=== PATIENT | male | born 1935 | race Hispanic/Latino ===

== ENCOUNTER 2017-02-19 13:37 | Emergency (ER) | payer MEDICARE, OTHER ==
[2017-02-19 13:37] VITALS: BMI 26.6
[2017-02-19 13:51] VITALS: TEMP 97.3; O2SAT 99
--- NOTE | 2017-02-19 14:18 | ED PDOC ---
Arrival/HPI - General Chief Complaint: Medical Clearance Time Seen by Provider: 02/19/17 13:48 Historian: Patient - History of Present Illness Narrative History of Present Illness (Text): 02/19/17 14:13 81 year old male whose past medical history includes hypertension, hyperlipidemia, gastritis, and hernia, presents to the emergency department with weakness that began while en route to a follow up appointment with GI for constipation. Patient's GI doctor (dr holt) reports he instructed the patient to come to the emergency department for evaluation. Patient reports he has been seeing his PMD for constipation. Currently patient denies any pain, nausea, dizziness, or other complaints. PMD: Dr. Louie 02/19/17 20:00 Past Medical History - Provider Review Nursing Documentation Reviewed: Yes - Infectious Disease Hx of Infectious Diseases: None - Cardiac Hx Hypertension: Yes Hx Pacemaker: No - Neurological Hx Paralysis: No - Hematological/Oncological Hx Blood Transfusions: No Hx Blood Transfusion Reaction: No - Musculoskeletal/Rheumatological Hx Musculoskeletal Disorders: No - Gastrointestinal Hx Gastroesophageal Reflux: Yes - Psychiatric Hx Emotional Abuse: No Hx Physical Abuse: No Hx Substance Use: No - Anesthesia Hx Anesthesia: No Hx Anesthesia Reactions: No Hx Malignant Hyperthermia: No - Suicidal Assessment Feels Threatened In Home Enviroment: No Family/Social History - Physician Review Nursing Documentation Reviewed: Yes Family/Social History: Unknown Family HX Smoking Status: Former Smoker Hx Alcohol Use: Yes (SOCIAL) Hx Substance Use: No Allergies/Home Meds Allergies/Adverse Reactions: Allergies No Known Allergies Allergy (Verified 02/19/17 13:47) Home Medications: Home Meds Medication Instructions Recorded Confirmed Aspirin [Aspir 81] 81 mg PO QAM 07/02/13 02/19/17 Atorvastatin [Lipitor] 20 mg PO QAM 07/02/13 02/19/17 Polyethylene Glycol 3350 [Miralax] 17 gm PO BID 06/20/15 02/19/17 amLODIPine [Norvasc] 10 mg PO QAM 06/20/15 02/19/17 Ranitidine HCl [Ranitidine 150] 150 mg PO HS 06/21/15 02/19/17 Dutasteride [Avodart] 0.5 mg PO QAM 01/06/16 02/19/17 [place]-3 Fatty Acids/Fish Oil [Fish 1,000 mg PO QAM 01/06/16 02/19/17 Oil 1,000 mg Capsule] Review of Systems - Physician Review All systems were reviewed & negative as marked: Yes - Review of Systems Cardiovascular: absent: Chest Pain Gastrointestinal: Constipation (Patient states has been following up with PMD/ GI. No new complaints today.). absent: Abdominal Pain, Nausea Neurological: absent: Dizziness Physical Exam Vital Signs Reviewed: Yes Vital Signs Temp Pulse Resp BP Pulse Ox 02/19/17 16:37 18 99 02/19/17 15:06 79 18 137/79 99 02/19/17 13:49 97.3 F L 88 19 139/84 99 Temperature: Afebrile Blood Pressure: Normal Pulse: Regular Respiratory Rate: Normal Appearance: Positive for: Well-Appearing, Non-Toxic, Comfortable Pain Distress: None Mental Status: Positive for: Alert and Oriented X 3 - Systems Exam Head: Present: Atraumatic, Normocephalic Pupils: Present: PERRL Extroacular Muscles: Present: EOMI Conjunctiva: Present: Normal Mouth: Present: Moist Mucous Membranes Neck: Present: Normal Range of Motion Respiratory/Chest: Present: Clear to Auscultation, Good Air Exchange. No: Respiratory Distress, Accessory Muscle Use Cardiovascular: Present: Regular Rate and Rhythm, Normal S1, S2. No: Murmurs Abdomen: Present: Normal Bowel Sounds. No: Tenderness, Distention, Peritoneal Signs, Rebound, Guarding Back: Present: Normal Inspection Upper Extremity: Present: Normal Inspection. No: Cyanosis, Edema Lower Extremity: Present: Normal Inspection. No: Edema Neurological: Present: GCS=15, CN II-XII Intact, Speech Normal Skin: Present: Warm, Dry, Normal Color. No: Rashes Psychiatric: Present: Alert, Oriented x 3, Normal Insight, Normal Concentration Medical Decision Making ED Course and Treatment: Impression: 81 year old male whose past medical history includes hypertension, hyperlipidemia, gastritis, and hernia, presents to the emergency department with weakness that began while en route to a follow up appointment with GI for constipation. Patient's GI sent him to ER for evaluation. Differential Diagnosis include but are not limited to: Dehydration r/o rhabdomyolysis Plan: -- EKG -- Labs -- IV fluids -- Reassess and disposition Prior Visits: Notes and results from previous visits were reviewed. Patient last seen in ED on 05/28/16 for abdominal pain and discharged home. Progress Notes: 02/19/17 15:58 CPK negative. Urine negative. WBC negative. Vitals stable. pt feels fine. Paged Dr. Holt. 02/19/17 16:[address] Holt, agrees with plan to discharge home. On reevaluation, patient states he feels better and is in no acute distress. Patient was instructed to follow up with PMD in 1-2 days or return if symptoms persist/worsen or new concerning symptoms arise. 02/19/17 20:01 - Lab Interpretations Lab Results: 02/19/17 15:15 02/19/17 15:15 Lab Results 02/19/17 15:15: Sodium 134, Potassium 3.8, Chloride 97 L, Carbon Dioxide 27, Anion Gap 14, BUN 15, Creatinine 0.9, Est GFR ( Amer) > 60, Est GFR (Non- Af Amer) > 60, Random Glucose 98, Calcium 9.5, Total Bilirubin 0.8, AST 33, ALT 24, Alkaline Phosphatase 64, Total Creatine Kinase 84, Total Protein 7.8, Albumin 4.4, Globulin 3.4, Albumin/Globulin Ratio 1.3 02/19/17 15:15: WBC 6.5, RBC 4.87, Hgb 15.8, Hct 44.3, MCV 91.0, MCH 32.4, MCHC 35.7, RDW 13.4, Plt Count 195, MPV 9.2, Gran % 81.4 H, Lymph % (Auto) 10.7 L, [place] % (Auto) 6.5 H, Eos % (Auto) 0.9 L, Baso % (Auto) 0.5, Gran # 5.25, Lymph # 0.7 L, [place] # 0.4, Eos # 0.1, Baso # 0.03 02/19/17 15:00: Urine Color Yellow, Urine Appearance Clear, Urine pH 6.5, Ur Specific [place] 1.010, Urine Protein Negative, Urine Glucose (UA) Negative, Urine Ketones Negative, Urine Blood Negative, Urine Nitrate Negative, Urine Bilirubin Negative, Urine Urobilinogen 0.2, Ur Leukocyte Esterase Negative - EKG Interpretation EKG Interpretation (Text): EKG shows NSR at [address] elevations or depressions, otherwise normal. Interpreted by me. Interpreted by ED Physician: Yes Type: 12 lead EKG - Medication Orders Current Medication Orders: Discontinued Medications Sodium Chloride (Sodium Chloride 0.9%) 1,000 mls @ 200 mls/hr IV .Q5H CHUCKY Last Admin: 02/19/17 15:46 Dose: 200 mls/hr - Scribe Statement The provider has reviewed the documentation as recorded by the Daniela Daugherty Provider Scribe Attestation: All medical record entries made by the Scribe were at my direction and personally dictated by me. I have reviewed the chart and agree that the record accurately reflects my personal performance of the history, physical exam, medical decision making, and the department course for this patient. I have also personally directed, reviewed, and agree with the discharge instructions and disposition. Disposition/Present on Arrival - Present on Arrival Any Indicators Present on Arrival: No History of DVT/PE: No History of Uncontrolled Diabetes: No Urinary Catheter: No History of Decub. Ulcer: No History Surgical Site Infection Following: None - Disposition Have Diagnosis and Disposition been Completed?: Yes Diagnosis: Fatigue Disposition: HOME/ ROUTINE Disposition Time: 15:09 Patient Plan: Discharge Condition: IMPROVED Discharge Instructions (ExitCare): Fatigue (ED) Additional Instructions: Follow up with your primary doctor in 1-2 days return to the emergency department with any worsening or concerning symptoms drink lots of water and stay well hydrated Referrals: Miko Louie MD [Primary Care Provider] - Follow up with primary
[2017-02-19] MEDS ORDERED: Sodium Chloride 0.9% 1,000 ML IV SCH (14:30)
[2017-02-19 15:07] VITALS: BP 137/79; PULSE 79; RESP 18
[2017-02-19 15:17] LABS: PH,URINE 6.5 (4.7-8.0); URINE BILIRUBIN NEGATIVE (NEGATIVE); URINE BLOOD NEGATIVE (NEGATIVE); URINE GLUCOSE (UA) NEGATIVE (NEGATIVE); URINE KETONE NEGATIVE (NEGATIVE); URINE LEUKOCYTE ESTERASE NEGATIVE Leu/uL (NEGATIVE); URINE PROTEIN NEGATIVE mg/dL (<30 mg/dL); URINE UROBILINOGEN 0.2 E.U./dL (<1 E.U./dL)
[2017-02-19 15:22] LABS: ADD MANUAL DIFF? NO
[2017-02-19 15:25] LABS: URINE APPEARANCE CLEAR (CLEAR); URINE COLOR YELLOW (YELLOW)
[2017-02-19 15:26] LABS: BASO # 0.03 K/mm3 (0.0-2.0); BASO % 0.5 % (0.0-3.0); EOS # 0.1 (0.0-0.7); EOS % 0.9 % (1.5-5.0); GRAN # 5.25 (1.4-6.5); GRAN % 81.4 % (50.0-68.0); HEMATOCRIT 44.3 % (42.0-52.0); LYMPH # 0.7 (1.2-3.4); LYMPH % 10.7 % (22.0-35.0); MEAN CORPUSCULAR HEMOGLOBIN 32.4 pg (25.0-35.0); MEAN CORPUSCULAR HGB CONC 35.7 g/dl (31.0-37.0); MEAN PLATELET VOLUME 9.2 fl (7.0-11.0); MONO # 0.4 (0.1-0.6); MONO % 6.5 % (1.0-6.0); PLATELET COUNT 195 10^3/uL (120.0-450.0); RED CELL DISTRIBUTION WIDTH 13.4 % (11.5-14.5); WHITE BLOOD COUNT 6.5 10^3/ul (4.5-11.0)
[2017-02-19 15:36] LABS: GFR AFRICAN-AMERICAN > 60
[2017-02-19 16:18] LABS: ALB/GLOB RATIO 1.3 (1.1-1.8)
[2017-02-19 16:34] LABS: ALKALINE PHOSPHATASE 64 U/L (38-133); ALT/SGPT 24 U/L (7-56); AST/SGOT 33 U/L (15-59); BILIRUBIN,TOTAL 0.8 mg/dL (0.2-1.3); BLOOD UREA NITROGEN 15 mg/dL (7-21); CALCIUM 9.5 mg/dL (8.4-10.5); CARBON DIOXIDE 27 mmol/L (21-33); CHLORIDE 97 mmol/L (98-107); GLUCOSE,RANDOM 98 mg/dL (70-110); POTASSIUM 3.8 mmol/L (3.6-5.0); SODIUM 134 mmol/L (132-148); TOTAL PROTEIN 7.8 g/dL (5.8-8.3)
--- NOTE | 2017-02-19 22:18 | CARD ---
APPROVED REPORT EKG Measurement Heart [id number] [place] [id number] [id number] <Conclusion> Normal sinus rhythm Normal ECG
== END 2017-02-19 16:38 | disposition home or self-care (01) ==
LOC: ED 13:37
DX: R53.83 Other fatigue (principal); I10 Essential (primary) hypertension; E78.5 Hyperlipidemia, unspecified
CPT/HCPCS: 80053; 81003; 82550; 85025; 87086; 93005; 99282; J7040

== ENCOUNTER 2017-02-25 20:12 | Emergency (ER) | payer MEDICARE, OTHER ==
[2017-02-25 20:13] VITALS: BMI 26.6
[2017-02-25 20:49] VITALS: BP 142/74; PULSE 88; RESP 18; TEMP 97.9; O2SAT 99
--- NOTE | 2017-02-25 22:08 | ED PDOC ---
Arrival/HPI - General Historian: Patient - History of Present Illness Time/Duration: > week Symptom Course: Unchanged Quality: Other (n/a) - General Chief Complaint: GI Problem Time Seen by Provider: 02/25/17 21:50 - History of Present Illness Narrative History of Present Illness (Text): 02/25/17 21:54 Patient is a 81 y/o with PMH of gastritis, hiatal hernia, constipation presenting with nausea and bloating since starting linzess 2 weeks ago. Patient states he contacted Dr Holt to tell him about the symptoms, however Dr Holt told him to take it for 1 more week. Patient decided to come to the ED because the symptoms persisted. Denies vomiting or diarrhea. States he had bowel movement this AM. Denies cp, sob, fever or chills. (Kavita Saenz) Past Medical History - Provider Review Nursing Documentation Reviewed: Yes - Travel History Have you recently traveled outside [place] w/in the past 3 mons?: No - Infectious Disease Hx of Infectious Diseases: None - Cardiac Hx Hypertension: Yes Hx Pacemaker: No - Neurological Hx Paralysis: No - Hematological/Oncological Hx Blood Transfusions: No Hx Blood Transfusion Reaction: No - Musculoskeletal/Rheumatological Hx Musculoskeletal Disorders: No - Gastrointestinal Hx Gastroesophageal Reflux: Yes - Psychiatric Hx Emotional Abuse: No Hx Physical Abuse: No Hx Substance Use: No - Anesthesia Hx Anesthesia: No Hx Anesthesia Reactions: No Hx Malignant Hyperthermia: No - Suicidal Assessment Feels Threatened In Home Enviroment: No Family/Social History - Physician Review Nursing Documentation Reviewed: Yes Family/Social History: No Known Family HX Smoking Status: Former Smoker Hx Alcohol Use: Yes (SOCIAL) Hx Substance Use: No Allergies/Home Meds Allergies/Adverse Reactions: Allergies No Known Allergies Allergy (Verified 02/19/17 13:47) Home Medications: Home Meds Medication Instructions Recorded Confirmed Aspirin [Aspir 81] 81 mg PO QAM 07/02/13 02/25/17 Atorvastatin [Lipitor] 20 mg PO QAM 07/02/13 02/25/17 Polyethylene Glycol 3350 [Miralax] 17 gm PO BID 06/20/15 02/25/17 amLODIPine [Norvasc] 10 mg PO QAM 06/20/15 02/25/17 Ranitidine HCl [Ranitidine 150] 150 mg PO HS 06/21/15 02/25/17 Dutasteride [Avodart] 0.5 mg PO QAM 01/06/16 02/25/17 [place]-3 Fatty Acids/Fish Oil [Fish 1,000 mg PO QAM 01/06/16 02/25/17 Oil 1,000 mg Capsule] Review of Systems - Review of Systems Constitutional: Fatigue. absent: Fevers Eyes: Normal ENT: Normal Respiratory: Normal Cardiovascular: Normal Gastrointestinal: Constipation, Nausea, Other (bloating). absent: Abdominal Pain, Diarrhea, Vomiting Genitourinary Male: Normal Musculoskeletal: Normal Skin: Normal Neurological: Normal Endocrine: Normal Hemo/Lymphatic: Normal Psychiatric: Normal Physical Exam Temperature: Afebrile Blood Pressure: Normal Pulse: Regular Respiratory Rate: Normal Appearance: Positive for: Well-Appearing, Non-Toxic, Comfortable Pain Distress: None Mental Status: Positive for: Alert and Oriented X 3 - Systems Exam Head: Present: Atraumatic, Normocephalic Pupils: Present: PERRL Extroacular Muscles: Present: EOMI Mouth: Present: Dry Neck: Present: Normal Range of Motion Respiratory/Chest: Present: Clear to Auscultation, Good Air Exchange. No: Respiratory Distress, Accessory Muscle Use, Wheezes, Rales, Retracting, Rhonchi , Tachypneic Cardiovascular: Present: Regular Rate and Rhythm, Normal S1, S2. No: Murmurs Abdomen: Present: Normal Bowel Sounds, Other (soft abdomen, obese abdomen. ). No: Tenderness, Distention, Peritoneal Signs, Rebound, Guarding Upper Extremity: Present: Normal Inspection. No: Cyanosis, Edema Lower Extremity: Present: Normal Inspection. No: Edema Neurological: Present: GCS=15 Skin: Present: Warm, Dry, Normal Color. No: Rashes Psychiatric: Present: Alert, Oriented x 3, Normal Insight, Normal Concentration Medical Decision Making ED Course and Treatment: 02/25/17 22:13 Patient is a 81 y/o with pmh of hiatal hernia, gerd, constipation, and htn presenting with nausea and bloating after taking linzess. Plan: advised to follow up with Dr Holt in regards to the symptoms induced by the Linzess. (Kavita Saenz) The pt denies any abdominal pain to me and his abd is non-tender. he says he has been taking miralax for over a year but then stopped abruptly about a week ago when his GI dr started him on linzess insteasd. since this change he says he has experienced a "bloated" feeling. he called Dr Holt today who suggested he continued the med for 1 more week but he says he wanted to speak with another doctor because he doesn't want to take it anymore. I advised to hold until he is able to disc w Dr Holt again tomorrow. I don't feel any wrkup is appropriate at this time and the pt is in agreement. (Jordon Silverman) Disposition/Present on Arrival - Present on Arrival Any Indicators Present on Arrival: No History of DVT/PE: No History of Uncontrolled Diabetes: No Urinary Catheter: No History of Decub. Ulcer: No History Surgical Site Infection Following: None - Disposition Have Diagnosis and Disposition been Completed?: Yes Disposition Time: 22:28 Patient Plan: Discharge - Disposition Diagnosis: Nausea, Bloating Disposition: HOME/ ROUTINE Condition: STABLE Additional Instructions: Please follow up with Dr Holt as scheduled Go to the nearest emergency room if you experience chest pain, sob, fever or chills. Referrals: Miko Louie MD [Primary Care Provider] - Follow up with primary Gatito Holt MD [Staff Provider] - Follow up with primary
== END 2017-02-25 22:38 | disposition home or self-care (01) ==
LOC: ED 20:12
DX: R11.0 Nausea (principal); R14.0 Abdominal distension (gaseous)

== ENCOUNTER 2017-03-04 12:05 | Emergency (ER) | payer MEDICARE, OTHER ==
[2017-03-04 12:06] VITALS: BMI 26.6
[2017-03-04 12:15] VITALS: TEMP 97.8; O2SAT 97
--- NOTE | 2017-03-04 12:23 | ED PDOC ---
Arrival/HPI - General Chief Complaint: Abdominal Pain Time Seen by Provider: 03/04/17 12:16 Historian: Patient - History of Present Illness Narrative History of Present Illness (Text): 03/04/17 12:39 A 81 year old male, whose past medical history includes hiatal hernia, GERD and constipation, presents to the emergency department complaining of nasal congestion, head fullness and generalized weakness since awaking this morning. Patient states he did not come here for abdominal complaints. Patient denies any fever, cough, or any other complaints at this time. PMD: Dr. Louie Compounder Helper: Dr. Holt Time/Duration: 1-3 hours Symptom Onset: Sudden Symptom Course: Unchanged Quality: Other Activities at Onset: Rest Context: Home Past Medical History - Provider Review Nursing Documentation Reviewed: Yes - Infectious Disease Hx of Infectious Diseases: None - Cardiac Hx Hypertension: Yes Hx Pacemaker: No - Neurological Hx Paralysis: No - Hematological/Oncological Hx Blood Transfusions: No Hx Blood Transfusion Reaction: No - Musculoskeletal/Rheumatological Hx Musculoskeletal Disorders: No - Gastrointestinal Hx Gastroesophageal Reflux: Yes - Psychiatric Hx Emotional Abuse: No Hx Physical Abuse: No Hx Substance Use: No - Anesthesia Hx Anesthesia: No Hx Anesthesia Reactions: No Hx Malignant Hyperthermia: No - Suicidal Assessment Feels Threatened In Home Enviroment: No Family/Social History - Physician Review Nursing Documentation Reviewed: Yes Family/Social History: Unknown Family HX Smoking Status: Former Smoker Hx Alcohol Use: Yes (SOCIAL) Hx Substance Use: No Allergies/Home Meds Allergies/Adverse Reactions: Allergies No Known Allergies Allergy (Verified 03/04/17 12:12) Home Medications: Home Meds Medication Instructions Recorded Confirmed Aspirin [Aspir 81] 81 mg PO QAM 07/02/13 03/04/17 Atorvastatin [Lipitor] 20 mg PO QAM 07/02/13 03/04/17 Polyethylene Glycol 3350 [Miralax] 17 gm PO BID 06/20/15 03/04/17 amLODIPine [Norvasc] 10 mg PO QAM 06/20/15 03/04/17 Ranitidine HCl [Ranitidine 150] 150 mg PO HS 06/21/15 03/04/17 Dutasteride [Avodart] 0.5 mg PO QAM 01/06/16 03/04/17 [place]-3 Fatty Acids/Fish Oil [Fish 1,000 mg PO QAM 01/06/16 03/04/17 Oil 1,000 mg Capsule] Physical Exam - Physical Exam Narrative Physical Exam (Text): - Review of Systems Constitutional: Head fullness. Generalized weakness. absent: Weight Change, Fevers Eyes: Normal ENT: Nasal congestion. Respiratory: Normal absent: SOB, Cough, Sputum Cardiovascular: Normal absent: Chest pain, Palpitations, Syncope Gastrointestinal: Normal absent: Abdominal pain, Diarrhea, Nausea, Vomiting Genitourinary: Normal. absent: Dysuria, Frequency, Hematuria Musculoskeletal: Normal. absent: Arthralgias, Back Pain, Neck Pain Skin: Normal Neurological: Normal absent: Focal Weakness Endocrine: Normal Hemo/Lymphatic: Normal Psychiatric: Normal - Physical exam Patient appears age appropriate, speaking full sentences without difficulty. - Systems Exam Head: Present: Atraumatic, Normocephalic Pupils: Present: PERRL Extraocular Muscles: Present: EOMI Conjunctiva: Present: Normal Mouth: Present: Moist Mucous Membranes Neck: Present: Normal Range of Motion. No: MIDLINE TENDERNESS, Paraspinal Tenderness Respiratory/Chest: Present: Clear to Auscultation, Good Air Exchange. No: Respiratory Distress, Accessory Muscle Use, Tachypneic Cardiovascular: Present: Regular Rate and Rhythm, Normal S1, S2, Peripheral Pulses Present. No: Murmurs Abdomen: Present: Normal Bowel Sounds, No: Tenderness, Peritoneal Signs, Rebound, Guarding, Distention Back: Present: Normal Inspection. No: Midline Tenderness, Paraspinal Tenderness Upper Extremity: Present: Normal Inspection. No: Cyanosis, Edema Lower Extremity: Present: Normal Inspection. No: Edema Neurological: Present: GCS=15, Speech Normal, cranial nerves II through XII fully intact with no cerebellar abnormality, neuro-sensory fully intact. No focal neurological deficits. Skin: Present: Warm, Dry, Normal Color. No: Rashes Lymphatic: Present: OX3, NI, NC Psychiatric: Present: Alert, Oriented x 3, Normal Insight, Normal Concentration Vital Signs Reviewed: Yes Vital Signs Temp Pulse Resp BP Pulse Ox 03/04/17 14:02 85 16 152/84 H 97 03/04/17 12:14 97.8 F 100 H 19 126/83 97 Temperature: Afebrile Blood Pressure: Normal Pulse: Regular Respiratory Rate: Normal Appearance: Positive for: Well-Appearing, Non-Toxic, Comfortable Pain Distress: None Mental Status: Positive for: Alert and Oriented X 3 - Systems Exam Pharnyx: Present: Normal. No: ERYTHEMA, EXUDATE, TONSILS ENLARGED, Peritonsilar Swelling, Uvular Deviation, Muffled/Hoarse Voice, Str[place], Soft Palate/Uvular Edema Medical Decision Making ED Course and Treatment: 03/04/17 12:39 Impression: A 81 year old male with head fullness, nasal congestion and generalized weakness. Physical examination reveals no acute findings. Contrary to triage, pt denies any abdominal pain, denies n/v/d, denies constipation. Pt's abd soft/nt/nd with pos. bowel sounds in all 4q's and no peritoneal signs. Differential Diagnosis include but are not limited to: URI vs. allergies Plan: -- EKG -- Head CT -- Labs -- Reassess and disposition Prior Visits: Notes and results from previous visits were reviewed. The patient presented to the emergency department on 02/25/17 for evaluation of abdominal complaints. Patient also presented on 02/19/17 for evaluation of constipation. Patient had an endoscopy on 01/09/16, which showed a small hiatal hernia and gastritis. Progress Notes: EKG: Ordered, reviewed, and independently interpreted the EKG. Rate : 86 BPM Rhythm : NSR Interpretation : No ST-segment elevations, normal intervals. Interpreted by me. 03/04/17 13:[address]: Creator : Romero Marie MD IMPRESSION: No acute findings 03/04/17 14:32 pt in no distress, denies complaints at this time no acute lab findings pt states he feels comfortable being dc'd home with outpatient f/u with PMD Pt states he understands to return to the ER right away for new or worsening symptoms or for inability to f/u with PMD or specialist as instructed. Patient states that he fully agrees with and understands discharge instructions. States that he agrees with the plan and disposition. Verbalized and repeated discharge instructions and plan. I have given the patient opportunity to ask any additional questions. - Lab Interpretations Lab Results: 03/04/17 13:00 03/04/17 13:00 Lab Results 03/04/17 13:00: Sodium 138, Potassium 3.9, Chloride 99, Carbon Dioxide 29, Anion Gap 14, BUN 13, Creatinine 1.0, Est GFR ( Amer) > 60, Est GFR (Non- Af Amer) > 60, Random Glucose 100, Calcium 10.0, Total Bilirubin 0.9, AST 30, ALT 41, Alkaline Phosphatase 65, Lactate Dehydrogenase 467, Total Creatine Kinase 59, Troponin I < 0.01, Total Protein 8.1, Albumin 4.6, Globulin 3.5, Albumin/Globulin Ratio 1.3 03/04/17 13:00: WBC 8.8 D, RBC 5.06, Hgb 16.6, Hct 46.2, MCV 91.3, MCH 32.8, MCHC 35.9, RDW 13.7, Plt Count 231, MPV 9.5, Gran % 74.2 H, Lymph % (Auto) 14.6 L, [place] % (Auto) 8.3 H, Eos % (Auto) 2.2, Baso % (Auto) 0.7, Gran # 6.56 H, Lymph # 1.3, [place] # 0.7 H, Eos # 0.2, Baso # 0.06 I have reviewed the lab results: Yes - RAD Interpretation Radiology Orders: 03/04/17 12:44 HEAD W/O CONTRAST [CT] Stat - Scribe Statement The provider has reviewed the documentation as recorded by the Scribe Jocelyn Woods Provider Scribe Attestation: All medical record entries made by the Scribe were at my direction and personally dictated by me. I have reviewed the chart and agree that the record accurately reflects my personal performance of the history, physical exam, medical decision making, and the department course for this patient. I have also personally directed, reviewed, and agree with the discharge instructions and disposition. Disposition/Present on Arrival - Present on Arrival Any Indicators Present on Arrival: No History of DVT/PE: No History of Uncontrolled Diabetes: No Urinary Catheter: No History of Decub. Ulcer: No History Surgical Site Infection Following: None - Disposition Have Diagnosis and Disposition been Completed?: Yes Diagnosis: Nasal congestion Disposition: HOME/ ROUTINE Disposition Time: 14:34 Patient Plan: Discharge Condition: GOOD Discharge Instructions (ExitCare): Cold Symptoms (ED), Weakness (ED) Additional Instructions: PLEASE RETURN TO THE EMERGENCY DEPARTMENT FOR NEW OR WORSENING SYMPTOMS. RETURN RIGHT AWAY IF YOU CANNOT FOLLOW UP WITH YOUR PRIMARY CARE DOCTOR, CLINIC, OR SPECIALIST IN 1-2 DAYS. Prescriptions: Fluticasone Propionate [Flonase] 1 spr NS BID #1 bottle Referrals: Condo,Miko, MD [Primary Care Provider] - Follow up with primary
[2017-03-04 13:11] LABS: ADD MANUAL DIFF? NO
[2017-03-04 13:17] LABS: BASO # 0.06 K/mm3 (0.0-2.0); BASO % 0.7 % (0.0-3.0); EOS # 0.2 (0.0-0.7); EOS % 2.2 % (1.5-5.0); GRAN # 6.56 (1.4-6.5); GRAN % 74.2 % (50.0-68.0); HEMATOCRIT 46.2 % (42.0-52.0); LYMPH # 1.3 (1.2-3.4); LYMPH % 14.6 % (22.0-35.0); MEAN CELL VOLUME 91.3 fL (80.0-105.0); MEAN CORPUSCULAR HEMOGLOBIN 32.8 pg (25.0-35.0); MEAN CORPUSCULAR HGB CONC 35.9 g/dl (31.0-37.0); MEAN PLATELET VOLUME 9.5 fl (7.0-11.0); MONO # 0.7 (0.1-0.6); MONO % 8.3 % (1.0-6.0); PLATELET COUNT 231 10^3/uL (120.0-450.0); RED CELL DISTRIBUTION WIDTH 13.7 % (11.5-14.5); WHITE BLOOD COUNT 8.8 10^3/ul (4.5-11.0)
--- NOTE | 2017-03-04 13:22 | CT ---
PROCEDURE: CT HEAD WITHOUT CONTRAST. HISTORY: weakness COMPARISON: None available. TECHNIQUE: Axial computed tomography images were obtained through the head/brain without intravenous contrast. Radiation dose: Total exam DLP = 734 mGy-cm. This CT exam was performed using one or more of the following dose reduction techniques: Automated exposure control, adjustment of the mA and/or kV according to patient size, and/or use of iterative reconstruction technique. FINDINGS: HEMORRHAGE: No intracranial hemorrhage. BRAIN: No mass effect or edema. No atrophy or chronic microvascular ischemic changes. VENTRICLES: Unremarkable. No hydrocephalus. CALVARIUM: Unremarkable. PARANASAL SINUSES: Unremarkable as visualized. No significant inflammatory changes. MASTOID AIR CELLS: Unremarkable as visualized. No inflammatory changes. OTHER FINDINGS: None. IMPRESSION: No acute findings
[2017-03-04 13:31] LABS: ALB/GLOB RATIO 1.3 (1.1-1.8); ALKALINE PHOSPHATASE 65 U/L (38-133); ALT/SGPT 41 U/L (7-56); AST/SGOT 30 U/L (15-59); BILIRUBIN,TOTAL 0.9 mg/dL (0.2-1.3); BLOOD UREA NITROGEN 13 mg/dL (7-21); CARBON DIOXIDE 29 mmol/L (21-33); CHLORIDE 99 mmol/L (95-110); GFR AFRICAN-AMERICAN > 60; GLUCOSE,RANDOM 100 mg/dL (70-110); POTASSIUM 3.9 mmol/L (3.6-5.0); SODIUM 138 mmol/L (132-148); TOTAL PROTEIN 8.1 g/dL (5.8-8.3)
[2017-03-04 14:04] VITALS: BP 152/84; PULSE 85; RESP 16
[2017-03-04 14:07] LABS: TROPONIN I < 0.01 ng/mL
--- NOTE | 2017-03-04 16:43 | CARD ---
APPROVED REPORT EKG Measurement Heart [id number] [place] [id number] <Conclusion> Normal sinus rhythm Q wave in II, Avf Abnormal ECG
== END 2017-03-04 14:43 | disposition home or self-care (01) ==
LOC: ED 12:05
DX: R09.81 Nasal congestion (principal); I10 Essential (primary) hypertension

== ENCOUNTER 2017-03-14 10:31 | Day surgery (SDC) | payer MEDICARE ==
[2017-03-06 12:33] VITALS: BMI 26.3
[2017-03-14] MEDS ORDERED: Propofol 10 mg/ml Inj (20 ML) ONE (13:02)
[2017-03-14] MEDS ORDERED: Sodium Chloride 0.9% 1,000 ML IV SCH (14:00)
[2017-03-14 14:15] VITALS: RESP 16
[2017-03-14 14:40] VITALS: BP 130/79; PULSE 84; TEMP 97.7; O2SAT 98
== END 2017-03-14 15:11 | disposition home or self-care (01) ==
LOC: ENDO 10:31
PROVIDERS: ATTEND Internal Medicine
DX: K20.9 Esophagitis, unspecified (principal); K26.9 Duodenal ulcer, unspecified as acute or chronic, without hemorrhage or perforation; K29.50 Unspecified chronic gastritis without bleeding; K63.5 Polyp of colon; K57.30 Diverticulosis of large intestine without perforation or abscess without bleeding; K64.8 Other hemorrhoids; I10 Essential (primary) hypertension; E78.5 Hyperlipidemia, unspecified
CPT/HCPCS: 43239; 45380; 88305; 88312; 88342; J2704; J7040 ×2

== ENCOUNTER 2018-01-13 07:21 | Day surgery (SDC) | payer MEDICARE ==
[2018-01-13 08:30] VITALS: BMI 26.3
[2018-01-13] MEDS ORDERED: Midazolam 2 MG/2 ML VIAL ONE (09:51)
[2018-01-13] MEDS ORDERED: Propofol 10 mg/ml Inj (20 ML) ONE ×2 (09:51→11:20)
[2018-01-13] MEDS ORDERED: Rocuronium 10 mg/ml (5 ml) ONE (09:51)
[2018-01-13] MEDS: Bupivacaine 0.5% Inj(30mL) ONE ×2 (10:03→11:17)
[2018-01-13] MEDS ORDERED: ePHEDrine 50 mg/ml Inj ONE (10:25)
[2018-01-13] MEDS ORDERED: Neostigmine Methylsulfate 3mg/3ml Syringe IV ONE (11:07)
[2018-01-13] MEDS ORDERED: Glycopyrrolate 0.2 mg/ml (2ml vial) ONE (11:08)
[2018-01-13] MEDS ORDERED: Morphine 2 mg/ml ISec IVP PRN (11:40)
--- NOTE | 2018-01-13 11:42 | PCM.SURG1 ---
Surgeon's Initial Post Op Note - Surgeon's Notes Surgeon: Dr. Avila Choke Reamer: Dr. Garcia PGY-3, Dr. Farmer PGY-1 Type of Anesthesia: General Endo Anesthesia Administered By: Dr. White Pre-Operative Diagnosis: R inguinal hernia Operative Findings: See operative report Post-Operative Diagnosis: Same Operation Performed: R inguinal hernia repair with mesh Specimen/Specimens Removed: cord lipoma Estimated Blood Loss: EBL {In ML}: 5 Blood Products Given: N/A Drains Used: No Drains Post-Op Condition: Good Date of Surgery/Procedure: 01/13/18 Time of Surgery/Procedure: 11:42
[2018-01-13] MEDS ORDERED: Lactated Ringer's 1,000 ML IV SCH (11:45)
[2018-01-13 12:55] VITALS: RESP 18; TEMP 97.1; O2SAT 97
[2018-01-13 15:06] VITALS: BP 111/80; PULSE 85
--- NOTE | 2018-01-13 23:15 | OP ---
PROCEDURE DATE: 01/13/2018 PREOPERATIVE DIAGNOSIS: Right inguinal hernia. POSTOPERATIVE DIAGNOSIS: Direct right inguinal hernia. PROCEDURE PERFORMED: Repair of the direct right inguinal hernia with PHS mesh patch. SURGEON: Americo Avila MD. 1ST PRESSMAN ON [employer] PRESS: Dr. Garcia and Dr. Farmer ANESTHESIOLOGIST: Dr. White. TYPE OF ANESTHESIA: General endotracheal anesthesia. ESTIMATED BLOOD LOSS: Minimal. SPECIMEN: Cord lipoma. INDICATIONS: Patient is an 82-year-old male with history of large bulge in the right groin. He was examined and was noted to have right inguinal hernia and was scheduled for the repair. DESCRIPTION OF PROCEDURE: Patient was brought to the operating room, placed on the operating table in supine position. Patient was connected to the EKG, blood pressure, and pulse oximetry monitors. Patient then underwent general endotracheal anesthesia and was prepped and draped in usual sterile fashion. First, standard time-out procedure took place, and everybody in the room agreed as to the patient)s identity, diagnosis, and procedure to be performed. Using lidocaine mixed with Marcaine, the area of the incision directly overlying the right inguinal canal was infiltrated and access to the hernia was obtained by going through the skin using #15 blade and through the subcutaneous fat and Veronica's fascia with cautery. Once the external oblique aponeurosis was exposed, it was then incised and elevated and the spermatic cord was visualized. Careful dissection of that revealed no evidence of ilioinguinal nerve in that location and therefore, we proceeded with further mobilization of the cord. It appeared the hernia was direct herniation through the floor of the inguinal canal secondary to the large preperitoneal fat. That was carefully dissected out and pushed back into the abdominal cavity. The preperitoneal space was mobilized with the internal ring and the cord itself was skeletonized. There was no hernia sac noted within the cord itself to it. We then proceeded with placing PHS mesh patch with the posterior leaf inserted into the preperitoneal space and the anterior leaf placed flatly on the floor of the inguinal canal. It was sutured to the edges of the transversalis fascia and inguinal ligament edge using 0 Vicryl stitches. A keyhole was cut out for the exit site of the spermatic cord on the external portion of the mesh. Once this was all completed, I then placed flatly all the edges of the mesh on the floor of the inguinal canal and sutured the external oblique aponeurosis over it. The cord was placed into it's original position prior to closure of the external oblique aponeurosis. The area of the incision was now infiltrated with lidocaine mixed with Toradol. The wound was irrigated and all the irrigant fluid was suctioned out. There was excellent hemostasis. The Veronica's fascia was closed using 3-0 Vicryl. The deep dermal closure was also done with 3-0 Vicryl and the skin was closed using 4-0 Monocryl. A sterile Dermabond dressing was applied to the wound. Patient tolerated the procedure well and there were no complications. Patient was awakened and transferred to the recovery room for further observation. Americo Avila MD [facility]
== END 2018-01-13 15:15 | disposition home or self-care (01) ==
LOC: SDS 07:21
PROVIDERS: ATTEND General Practice
DX: K40.90 Unilateral inguinal hernia, without obstruction or gangrene, not specified as recurrent (principal); D17.6 Benign lipomatous neoplasm of spermatic cord
CPT/HCPCS: 49505; 88302; C1781; J0690; J1885; J2001; J2250; J2270; J2405; J2704; J2710; J3010; J7120 ×2